=== PATIENT | male | born 1970 | race American Indian/Alaskan Native ===

== ENCOUNTER 2016-05-21 05:43 | Inpatient (IN) | payer MEDICAID ==
[2016-05-21] MEDS ORDERED: NACL BACTERIOSTATIC INFILTRATI ONE (05:50)
[2016-05-21] MEDS ORDERED: QUELICIN ONE (06:42)
[2016-05-21] MEDS ORDERED: XYLOCAINE MPF 2% ONE (06:43)
[2016-05-21] MEDS ORDERED: ROBINUL ONE ×2 (06:44→08:05)
[2016-05-21] MEDS ORDERED: ZEMURON IV ONE (06:46)
[2016-05-21] MEDS ORDERED: BLOXIVERZ ONE (06:49)
[2016-05-21] MEDS ORDERED: DILAUDID ONE (06:51)
[2016-05-21] MEDS ORDERED: DIPRIVAN 10 MG/ML IV ONE (06:51)
[2016-05-21] MEDS ORDERED: LACTATED RINGERS 1,000 ML IV SCH (07:00)
[2016-05-21] MEDS ORDERED: PEPCID IV NR (07:00)
[2016-05-21] MEDS ORDERED: ANCEF/STERILE WATER 2 GM/20 ML IV NR (07:00)
--- NOTE | 2016-05-21 07:00 | Anesthesia Consultation ---
Anesthesia Consult and Med Hx Date of service: 05/21/16 - Airway Anesthetic Teeth Evaluation: Good ROM Head & Neck: Adequate Mental/Hyoid Distance: Adequate Mallampati Class: Class II Intubation Access Assessment: Probably Good - Pulmonary Exam CTA: Yes - Cardiac Exam Cardiac Exam: RRR Anesthetic Concerns: Patient has cervical radiculopathy with pain in LUE. Neck extension mildly decreased due to pain. - Pre-Operative Health Status ASA Pre-Surgery Classification: ASA3 Proposed Anesthetic Plan: General - Pulmonary Hx Sleep Apnea: Yes (8YRS, CPAP, PFT's show mild restrictive and obstructive pattern.) - Gastrointestinal Hx Gastroesophageal Reflux Disease: Yes
--- NOTE | 2016-05-21 07:00 | Anesthesia Day of Surgery ---
Anesthesia Day of Surgery - Day of Surgery Patient Examined: Yes Patient H&P Reviewed: Yes Patient is NPO: Yes
[2016-05-21] MEDS ORDERED: ZOFRAN IV PRN ×2 (07:01→09:45)
[2016-05-21] MEDS ORDERED: NORCO 5/325 PO PRN (07:01)
[2016-05-21] MEDS ORDERED: DILAUDID IV NR (07:02)
[2016-05-21 07:26] LABS: Mucus,Urine FEW /HPF; WBC,Urine < 1.0 /HPF (0.0-6.0)
[2016-05-21] MEDS ORDERED: WATER FOR IRRIG STERILE IR ONE (07:40)
[2016-05-21] MEDS ORDERED: FLAGYL 500 MG/100 ML 100 ML IV NR (08:00)
[2016-05-21] MEDS ORDERED: LOVENOX SUB-Q NR (08:00)
[2016-05-21] MEDS ORDERED: ePHEDrine SULFATE ONE (08:05)
[2016-05-21] MEDS ORDERED: NACL P/F VIAL (10 ML) 10 ML ONE (08:07)
[2016-05-21] MEDS ORDERED: MARCAINE-EPI 0.5%-1:200,000 INFILTRATI ONE ×2 (08:18)
[2016-05-21] MEDS ORDERED: NACL 0.9% IR ONE (08:18)
[2016-05-21] MEDS ORDERED: XYLOCAINE 1% 20 mL INFILTRATI ONE ×2 (08:19)
[2016-05-21] MEDS ORDERED: MORPHINE IV PRN (09:45)
[2016-05-21] MEDS: DILAUDID IV PRN ×4 (10:00→10:40)
[2016-05-21] MEDS ORDERED: NACL 0.9% 1000 ML 1,000 ML IV SCH (10:00)
--- NOTE | 2016-05-21 10:10 | Post Anesthesia Evaluation ---
- Post Anesthesia Evaluation Patient Participated: Yes Airway Patent: Yes Stable Respiratory Function: Yes Nausea/Vomiting: No Temp > 96.8F: Yes Pain Manageable: Yes Adequeate Hydration: Yes Anesthesia Complications: No Block Receding Appropriately: Not Applicable Patient on Ventilator: No
[2016-05-21] MEDS: TORADOL IV SCH ×2 (12:00→18:35)
[2016-05-21] MEDS: NORCO PO PRN ×3 (13:06→22:59)
--- NOTE | 2016-05-21 14:17 | Admit Criteria Form ---
Admission Criteria Documentation: AMBULATORY SURGERY EXCEPTION CRITERIA Ambulatory Surgery Exception Criteria ( Place 'X' for any and all applicable criteria): Surgery or procedure performed on ambulatory basis may require inpatient stay for[A] ANY ONE of the following(1)(2)(3)(4)(5)(6)(7)(8)(9): [X] I. A preoperative situation, condition, or finding that warrants inpatient stay as indicated by ANY ONE of the following: [] a) Inpatient care needed because of severity of a disease or condition rather than the surgery (eg, severe cardiac or respiratory disease, severe infection) (15) (16 ) (17) (18) [] b) Emergent procedure (eg, angioplasty for acute ischemia)(19) [] c) Complex surgical approach or situation as indicated by ANY ONE of the following(3): [] i) Open approach needed instead of usual endoscopic, transcatheter, or other less invasive procedure [] ii) Difficult approach because of previous operation [] iii) Airway monitoring required after open neck procedures(20)(21) [] iv) Large mass requiring unusually extensive dissection [] v) Additional complicating feature requiring inpatient care (eg, drain management)(22(23): [X] d) Major surgery in a pt with high anesthetic risk as indicated by ANY ONE of the following (2)(3)(5)(7)(8): [X] i) ASA risk class III or higher (severe systemic disease impairing function) [D] [] ii) Advanced age (eg, older than 85 years)(14)(24) [] iii) Symptomatic heart failure(25) [] iv) Symptomatic asthma or COPD(8)(21) [] v) Morbid obesity with hemodynamic or respiratory problems(20)( 21)(26)(27) [] vi) Obstructive sleep apnea(20)(21) [] vii) Former premature infants who are younger than 60 weeks [] viii) High risk for severe postoperative abnormalities (eg, severe postoperative hypocalcemia after parathyroidectomy for severe hyperparathyroidism)(27)( 28) [] ix) Unstable angina(25) [] e) Drug-related risk requiring inpatient stay as indicated by ANY ONE of the following(5)(10)(14)(32)(33) [] i) Procedure requires discontinuing drugs or other therapy (eg , antiarrhythmic medication, antiseizure medication), which necessitates inpatient observation or treatment.(18)(31) [] ii) Major surgery and high risk drug use as indicated by ANY ONE of the following: [] 1) Active abuse of cocaine or similar drug [] 2) Monoamine oxidase inhibitor use [] 3) Other drug identified as posing risk [] f) Inadequate outpatient care situation as indicated by ANY ONE of the following(5)(10)(14)(32)(33) [] i) Patient lives remote from medical facility and procedure has urgent complication potential, and temporary nearby residence cannot be arranged [] ii) Patient will have postprocedure incapacitation and inadequate assistance at home, or alternative level of care cannot be arranged. [] iii) Patient will have long general anesthesia or procedure side effect resolution time, and competent person to stay with patient on first postoperative night at home or alternative level of care cannot be arranged. []iv) Other inadequate outpatient situation that cannot be handled by other means [] II. A perioperative event, condition, or finding that warrants inpatient stay as indicated by ANY ONE of the following (1)(2)(3): [] a) Inadequate physiologic recovery: cardiovascular, respiratory, or hemodynamic status not normal or near preoperative baseline(18) [] b) Hemodynamic instability [] c) Patient not alert with near normal or baseline mental status [] d) Temperature not normal or as expected and not appropriate for outpatient treatment of condition [] e) Ambulatory or appropriate activity level status not yet achieved post procedure [E](34)(35)(36) [] f) Operative site not appropriate (eg, unexpected or excessive drainage or bleeding) [] g) Postoperative effects not resolved or adequately managed (eg, significant pain or vomiting not appropriate for outpatient or next level of care)(10)(12) [] h) Complicating features requiring inpatient care as indicated by ANY ONE of the following(37): [] i) Severe complications of procedure (eg, bowel injury, airway compromise, vascular injury,severe hemorrhage) [] ii) Extensive (eg, dissection far beyond usual scope of procedure ) or prolonged (eg, 120 minutes beyond usual) surgery needed requiring inpatient postoperative care [] iii) Conversion to an open or complex procedure that requires inpatient care (eg, open vs laparoscopic cholecystectomy, abdominal vs vaginal hysterectomy)(38) [] iv) Comorbid condition or test result identified during or post procedure that requires inpatient care (7) [] v) Malignant hyperthermia(30) [] vi) Other complicating feature requiring inpatient care(22)(23) Inpatient stay may be needed until ALL of the following are present (1)(2)(3)(4) (5)(6)(10)(14)(33)(40): []a) Physiologic recovery: cardiovascular, respiratory, and hemodynamic status normal or near preoperative baseline []b) Hemodynamic stability []c) Patient alert, with near normal or baseline mental status []d) Temperature appropriate: patient afebrile or temperature appropriate for outpt treatment of condition []e) Activity level appropriate: ambulatory or appropriate activity level post procedure []f) Operative site appropriate as indicated by ALL of the following: []i) Site dry or with expected drainage []ii) Any blood noted is as expected for procedure. []g) Postoperative effects resolved or managed as indicated by ALL of the following: []i) Pain management appropriate for outpatient (or next level of) care(10) []ii) Minimal nausea and vomiting: if present, successfully treated with oral medication(12) []iii) Headache, dizziness, or drowsiness (if present) are mild. []h) Voiding status acceptable as indicated by ANY ONE of the following: []i) Voiding spontaneously []ii) No voiding but instructions given for follow-up in 6 to 8 hours []iii) Urinary catheter in place, and instructions given for follow-up []i) Complicating features requiring inpatient care manageable at a lower level of care(37) []j) Comorbid conditions manageable at a lower level of care(37) The original [employer] content created by [employer] has been revised. The portions of the content which have been revised are identified through the use of italic text or in bold, and [facility] [employer] has neither reviewed nor approved the modified material. All other unmodified content is copyright [employer]. Please see references footnoted in the original [employer] edition 2016 Admission Criteria Met: Yes
[2016-05-21] MEDS ORDERED: DILAUDID IV PRN (20:05)
[2016-05-21] MEDS ORDERED: LOVENOX SUB-Q SCH (22:00)
[2016-05-22] MEDS: TORADOL IV SCH (01:30)
[2016-05-22] MEDS: NORCO PO PRN (10:00)
--- NOTE | 2016-05-22 14:41 | Discharge Summary ---
Providers - Providers Date of Admission: 05/21/16 05:43 Date of discharge: 05/22/16 Attending physician: CHRISTOPHER GOODMAN Primary care physician: ALVARO CORONADO MD Hospitalization Reason for admission: Post op observation Condition: Stable Disposition: DISCHARGED TO HOME OR SELFCARE Core Measure Documentation - Palliative Care Palliative Care/ Comfort Measures: Not Applicable - Core Measures Any of the following diagnoses?: none Exam - Constitutional Vitals: Temp Pulse Resp BP Pulse Ox 98.9 F 80 20 116/78 95 05/21/16 23:33 05/21/16 23:33 05/21/16 23:33 05/21/16 23:33 05/22/16 02:02 General appearance: Present: no acute distress, well-nourished - EENT Eyes: Present: PERRL - Neck Neck: Present: supple, normal ROM - Respiratory Respiratory effort: normal - Cardiovascular Heart Sounds: Present: S1 & S2. Absent: rub, click - Abdominal General gastrointestinal: Present: soft, non-tender (appropriate wound TTP), non -distended, normal bowel sounds Plan Activity: other (no heavy lifting) Weight Bearing Status: Full Weight Bearing Diet: other (bariatric stage 1) Follow up with: PRIMARY CAREMD [Primary Care Provider] - 7 Days
[2016-05-22 14:50] LABS: Magnesium 1.8 mg/dL (1.7-2.3); Phosphorous 3.6 mg/dL (2.5-4.5)
[2016-05-22 16:00] VITALS: BP 136/84
[2016-05-22 19:35] LABS: Alanine Aminotransferase 28 units/L (7-56); Albumin 3.4 g/dL (3.9-5); Albumin/Globulin Ratio 1.4 %; Alkaline Phosphatase 80 units/L (35-129); BUN/Creatinine Ratio 14.28; Bilirubin,Total 0.5 mg/dL (0.1-1.2); Blood Urea Nitrogen 10 mg/dL (9-20); Calcium 8.4 mg/dL (8.4-10.2); Carbon Dioxide 23 mmol/L (22-30); Chloride 103.2 mmol/L (98-107); Glucose 102 mg/dL (75-100); Potassium 3.8 mmol/L (3.6-5.0); Sodium 141 mmol/L (137-145); Total Protein 5.8 g/dL (6.3-8.2)
[2016-05-22 19:36] LABS: Anion Gap 19 mmol/L
== END 2016-05-22 11:20 | disposition home or self-care (01) | DRG 328 ==
LOC: 3A 05:43 → 2B-SURG 10:12 → 3A 11:09 → 2B-SURG 11:43
PROVIDERS: ADMIT Specialist; ATTEND Specialist
PROC: 0D164ZA Bypass Stomach to Jejunum, Percutaneous Endoscopic Approach (ICD-10-PCS; principal; 2016-05-21)
PROC: 0BQR4ZZ (ICD-10-PCS; 2016-05-21)
PROC: 5A09357 Assistance with Respiratory Ventilation, Less than 24 Consecutive Hours, Continuous Positive Airway Pressure (ICD-10-PCS; 2016-05-21)
PROC: 0BQS4ZZ (ICD-10-PCS; 2016-05-21)
DX: K21.9 Gastro-esophageal reflux disease without esophagitis (principal); G47.30 Sleep apnea, unspecified; K30 Functional dyspepsia; G43.909 Migraine, unspecified, not intractable, without status migrainosus; E63.1 Imbalance of constituents of food intake; K44.9 Diaphragmatic hernia without obstruction or gangrene
CPT/HCPCS: 36415; 80053; 80061; 81015; 83735; 84100; 87086; 94660; J0330; J0690; J1170; J1650; J1885; J2270; J2704; J2710; J7030; J7120